=== PATIENT | male | born 1995 | race Caucasian/White ===

== ENCOUNTER 2017-03-18 15:43 | Emergency (ER) | payer BC, OTHER ==
[~2017-03-18] VITALS: Ht 175.3 cm; Wt 76.8 kg
[~2017-03-18 15:43] MED LIST: CNC/54 PO
[2017-03-18 16:09] VITALS: BP 120/63; TEMP 36.7; Ht 175.3 cm; Wt 76.8 kg
[2017-03-18] MEDS ORDERED: ACETAMINOPHEN 500 MG TAB PO STA (16:16)
[2017-03-18] MEDS ORDERED: XYLOCAINE 1%/SOD BICARB 20 ML VIAL INFIL ONE (16:30)
--- NOTE | 2017-03-18 16:47 | DIAGNOSTIC IMAGING REPORT ---
RIGHT HAND 3 VIEWS HISTORY: R hand laceration from broke glass COMPARISON: None. FINDINGS: There is no fracture or dislocation. Soft tissues are unremarkable. No radiopaque foreign bodies. IMPRESSION: No fractures within the right hand. No radiopaque foreign bodies. Electronically signed by: Shai Graham M.D. 03/18/2017 4:46 PM Dictated Date/Time: 03/18/2017 4:45 PM
[2017-03-18 17:37] VITALS: PULSE 59; O2SAT 100
--- NOTE | 2017-03-18 21:51 | EMERGENCY ROOM VISIT NOTE ---
ED Visit Note First contact with patient: 16:11 Chief Complaint: I cut my left ring finger. History of Present Illness: Mr. Vuong is a 21-year-old white male who ambulates into the ED accompanied by male friend complaining of the left ring finger laceration. Patient reports just prior to arrival at the hospital he was walking downstairs , he reports he started to slip and put his hand out to catch himself. When he did this there was a piece of glass on the steps and he sustained a laceration to the palmar aspect of the left ring finger. Prior to arrival at the hospital he did control bleeding but did not wash the wound. Currently he is complaining of a throbbing and stinging pain over the proximal phalanxes of the left ring finger. He rates his discomfort 6/10. The pain is nonradiating. The pain worsens with palpation. He has not identified any alleviating factors related to the pain. He has not taken any medication for pain prior to arrival at the hospital. He denies any associated symptoms including wrist pain, other hand pain, other finger pain, ring finger weakness/ numbness/tingling. Review of Systems: As noted above in history of present illness. Past Medical History: Patient denies. Current Medications: Patient denies. Allergies to Medications: Patient denies. Social History: Patient is currently University student; he feels safe in his home environment; he denies tobacco use and admits to alcohol use. Tetanus Immunization Status: Patient reports up-to-date. Physical Examination: Vital Signs: Date Time Temp Pulse Resp B/P (MAP) Pulse Ox O2 Delivery O2 Flow Rate FiO2 03/18/17 17:37 59 16 100 03/18/17 16:09 36.7 70 18 120/63 98 Room Air GENERAL: 21-year-old male in mild distress due to pain, nontoxic-appearing, afebrile and hemodynamically stable. NEUROLOGICAL: Awake, alert and oriented to person, place and time. Answering questions appropriately and following commands. . Good hand eye coordination. SKIN: Warm, dry and pink. Left Ring Finger: Patient has a full-thickness laceration over the proximal aspect of the proximal phalanxes measuring approximately 3.1 cm. Minimal active bleeding. LEFT HAND: Soft tissue injury as noted above. No gross bony deformity. Full range of motion in flexion and extension of all MCP, PIP and DIP joints against resistance. Throughout the index finger the skin was warm and pink and capillary refill is brisk. He was able to distinguish light sensations through all dermatomes. ED Course: Patient is assessed as noted above. Patient's medication list was reviewed. Patient was given 1 g of acetaminophen by mouth for pain per Left Hand X-Rays: Were read by myself and the radiologist showing no acute fractures or dislocation. No foreign bodies. Wound Repair: Complexity: Basic Verbal consent was obtained after the risks and benefits were explained. The skin was prepped with betadine and a sterile field set. Wound edges of the wound was anesthetized with 2.3 ml buffered 1% lidocaine. The wound was explored for foreign bodies and none found. Copious irrigation was performed using sterile saline. With direct pressure the bleeding subsided. Debridement was not performed. The wound edges were approximated using 5-0 Ethilon with 7 simple interrupted sutures. Hemostasis and excellent approximation was achieved. Antibacterial ointment and a sterile dressing applied. Patient's ring finger was placed in a metal finger splint. No complications and the patient tolerated the procedure well. Patient was educated about tonight's findings and instructed on his treatment plan; he verbalizes understanding and agreement with this plan. Clinical Impression: Laceration of the left index finger. Disposition: Patient discharged home in stable condition; prior to departure he was reassessed and subjectively reported he was pain-free. Plan: Comfort measures, wound care and signs of infection were discussed with the patient. Patient was encouraged to follow-up with [facility] or return to the ED for any signs of infection and/or suture removal in 10-12 days.
== END 2017-03-18 17:38 | disposition home or self-care (01) ==
LOC: C.EDB 15:43 → C.EDD 17:38
DX: S61.215A Laceration without foreign body of left ring finger without damage to nail, initial encounter (principal); W25.XXXA Contact with sharp glass, initial encounter